=== PATIENT | male | born 1995 ===

== ENCOUNTER → 2017-09-08 | Outpatient (CLI) | payer BC ==
--- NOTE | 2017-09-08 15:21 | Diagnostic Imaging Report ---
PROCEDURE: CT urinary tract, rule out kidney stone. TECHNIQUE: Multiple contiguous axial images were obtained through the abdomen and pelvis without the use of intravenous contrast. INDICATION: Left flank pain with hematuria. FINDINGS: The lung bases are clear. The liver appears normal. The gallbladder is present. The spleen is not enlarged. The adrenals are normal. The right kidney is normal. There is very slight hydronephrosis of the left kidney. There is a 2 mm calculus at the left ureterovesical junction causing mild obstruction. The prostate, urinary bladder, and seminal vesicles are otherwise unremarkable. The large and small intestines appear normal. The aorta and IVC appear normal. IMPRESSION: There is a 2 mm stone in the distal left ureter at the ureterovesical junction causing mild obstruction. Dictated by: Dictated on workstation # [id number]
== END ==
LOC: RAD 14:16
PROVIDERS: ATTEND Nurse Practitioner Family
DX: N20.1 Calculus of ureter (principal)
CPT/HCPCS: 74176